=== PATIENT | female | born 2000 | race African-American/Black ===

== ENCOUNTER 2020-02-29 22:18 | Day surgery (SDC) | payer OTHER ==
[2020-02-29 22:43] VITALS: BMI 27.4
[2020-02-29] MEDS ORDERED: hydrALAZINE 20 MG/ML VIAL SLOW IVP PRN (22:57)
--- NOTE | 2020-03-01 05:04 | SS ---
DATE OF ADMISSION: 02/29/2020 DATE OF DISCHARGE: 02/29/2020 REGULAR PHYSICIAN: Timbo Padilla D.O. EVALUATING PHYSICIAN: Corona Robles MD CHIEF COMPLAINT: Groin pain. HISTORY OF PRESENT ILLNESS: Ms. Oglesby is a 20-year-old black G1, P0, estimated date of confinement of 06/12/2019, who presents complaining of groin pain over the last four days. She states this got worse at work today. She states she called Dr. Padilla's office this afternoon, but did not get a call back. She denies associated ruptured membranes or leakage of fluid. She does state that she has had vaginal discharge over the last 24 hours. Her care has been with Dr. Padilla and she reports no complications. PAST MEDICAL HISTORY: None. PAST SURGICAL HISTORY: None. CURRENT MEDICATIONS: vitamins. ALLERGIES: NO KNOWN ALLERGIES. SOCIAL HISTORY: Denies tobacco, alcohol, or drug use. FAMILY HISTORY: Unremarkable. REVIEW OF SYSTEMS: Denies nausea, vomiting, fever, chills, ruptured membranes, or vaginal bleeding. PHYSICAL EXAMINATION: VITAL SIGNS: In triage, her vital signs are stable. She is afebrile. GENERAL: She is in no acute distress. ABDOMEN: Soft, nontender, and gravid. There is no guarding or rebound. PELVIC: Examination by sterile speculum exam shows no discharge. The cervix is closed. heart rate tracing is stable. There are no decelerations. No uterine contractions were seen. ASSESSMENT: 1. A 25-week intrauterine . 2. Suspect round ligament pain. PLAN: The nature of round ligament pain was discussed with her in detail. She was told that she could use Tylenol or a heating pad on her back as well as warm tub soaks for comfort. She voiced understanding of her discharge instructions and was sent home in good condition. Job ID: [id number]
== END 2020-02-29 23:15 | disposition home or self-care (01) ==
LOC: L&D/OP 22:18
PROVIDERS: ATTEND Obstetrics & Gynecology
DX: O99.891 Other specified diseases and conditions complicating pregnancy (principal); R10.30 Lower abdominal pain, unspecified; N89.8 Other specified noninflammatory disorders of vagina; Z3A.25 25 weeks gestation of pregnancy